=== PATIENT | female | born 2000 | race Caucasian/White ===

== ENCOUNTER 2023-01-08 11:24 | Emergency (ER) | payer OTHER, SELFPAY ==
[2023-01-08 11:30] VITALS: BP 120/79; PULSE 93; RESP 16; TEMP 36.7; O2SAT 100
--- NOTE | 2023-01-08 11:38 | ED.SKABFB ---
HPI - Skin/Abscess/Foreign Bdy General Chief complaint: Skin/Abscess/Foreign Body Stated complaint: Rash Time Seen by Provider: 01/08/23 11:33 Source: patient and RN notes reviewed Mode of arrival: ambulatory Limitations: no limitations History of Present Illness HPI narrative: Patient presents today complaining of possible poison guerrero to the dorsum of her right hand and anterior neck that she noted x4 days. States the rash has been extending around her neck since onset and the rash in her fingers has started to blister. She has been using hydrocortisone and Benadryl without much relief. 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 Related Data Home Medications Medication Instructions Recorded Confirmed sertraline 50 mg tablet 50 mg PO DAILY 01/25/22 01/08/23 Allergies Allergy/AdvReac Type Severity Reaction Status Date / Time hepatitis A virus vaccine AdvReac Intermediate Nausea And Verified 01/08/23 11:29 Vomiting moxifloxacin AdvReac Mild Hives Verified 01/08/23 11:34 Review of Systems Review of Systems: CONSTITUTIONAL: Denies body aches, fever, chills, or sweats. EYES: Denies visual changes, redness, or discharge. ENT: Denies rhinorrhea, congestion, sore throat, or otalgia. CARDIOVASCULAR: Denies chest pain, palpitations, or edema. RESPIRATORY: Denies cough or dyspnea. GASTROINTESTINAL: Denies abdominal pain, nausea, vomiting, or diarrhea. GENITOURINARY: Denies dysuria or hematuria. SKIN: + pruritic rash. MUSCULOSKELETAL: Denies back pain, joint pain, or myalgia. NEUROLOGIC: Denies headache, numbness, tingling, or weakness. PSYCH: Denies depression or anxiety. [facility] Family History Family History Father No problems noted. Mother Vitamin D deficiency Sibling Retinoblastoma of left eye Social History Social History Smoking status: Never smoker Alcohol intake: never Substance use type: does not use Lack of Transportation: No Lack of Food: Never True Current Housing: I Have Housing Concerned About Future Housing: No Difficulty Paying Gas/Electric Bills: No Difficulty Paying for Meds: No Currently Unemployed: No Education: Associate Degree Difficulty w/ Childcare or Family Care: No Comments At time of signature, I have reviewed and agree with nursing past medical, surgical, social and family history unless otherwise noted. Please see nursing chart for further information. There is no relevant family history pertinent to the presenting complaint Exam Narrative: GENERAL: Well-appearing, well-nourished, and in no acute distress. HEAD: Normocephalic, atraumatic. EYES: EOMI. No redness or drainage. Conjunctivae normal. ENT: Mucous membranes pink and moist. NECK: Normal AROM. CHEST: No respiratory distress. EXTREMITIES: Normal range of motion. No edema. SKIN: Warm, dry. Capillary refill normal. Normal skin turgor. [place] vesicular rash to the dorsum of the right hand at the base of the 3rd and 4th fingers. Same vesicular rash to the anterior neck. No signs of bacterial infection. NEURO: No focal deficits. Alert and oriented x3. Gait steady. PSYCH: Normal affect. No signs of depression or anxiety. Course Course Level of Care: Express Care Visit Vital Signs Vital signs: Vital Signs Temperature 98.1 F 01/08/23 11:30 Pulse Rate 93 01/08/23 11:30 Respiratory Rate 16 01/08/23 11:30 Blood Pressure 120/79 01/08/23 11:30 Pulse Oximetry 100 01/08/23 11:30 Oxygen Delivery Room Air 01/08/23 11:30 Temperature 98.1 F 01/08/23 11:30 Pulse Rate 93 01/08/23 11:30 Respiratory Rate 16 01/08/23 11:30 Blood Pressure 120/79 01/08/23 11:30 Pulse Oximetry 100 01/08/23 11:30 Oxygen Delivery Room Air 01/08/23 11:30 Reviewed MDM - Skin/Abscess/Foreign Bdy MDM Narrative
== END 2023-01-08 11:43 | disposition home or self-care (01) ==
PROVIDERS: Emergency Provider Nurse Practitioner; PCP Family Medicine
DX: L25.5 Unspecified contact dermatitis due to plants, except food (principal)
CPT/HCPCS: 99213; G0463

== ENCOUNTER 2023-01-19 17:23 | Emergency (ER) | payer OTHER, SELFPAY ==
[2023-01-19 17:29] VITALS: BP 124/83; PULSE 68; RESP 16; TEMP 36.5; O2SAT 100
--- NOTE | 2023-01-19 17:30 | ED.GENADULT ---
HPI - General Adult General Chief complaint: Skin/Abscess/Foreign Body Time Seen by Provider: 01/19/23 17:31 Source: patient Mode of arrival: ambulatory Limitations: no limitations History of Present Illness HPI narrative: 22-year-old presents to [facility] with sequela of poison guerrero rash. Patient states she was here 12 days ago for her rash on her hands and neck and received a tapered prednisone dose which she finished today. She states the rash on her neck is better but the rash on her hands is getting worse and now has rash extending to her torso and back. Denies rash in her groin o or buttocks. Denies taking any topical steroids. Patient states no one else in the household has this rash. Patient denies rash being more itchy at night. patient states she is taking Benadryl at night to help with itchiness and sleep. Related Data Home Medications Medication Instructions Recorded Confirmed sertraline 50 mg tablet 50 mg PO DAILY 01/25/22 01/19/23 Allergies Allergy/AdvReac Type Severity Reaction Status Date / Time hepatitis A virus vaccine AdvReac Intermediate Nausea And Verified 01/19/23 17:27 Vomiting moxifloxacin AdvReac Mild Hives Verified 01/19/23 17:27 Review of Systems Review of Systems: CONSTITUTIONAL: Denies fever, chills, or sweats. EYES: Denies visual changes, redness, or discharge. ENT: Denies rhinorrhea, congestion, sore throat, or otalgia. CARDIOVASCULAR: Denies chest pain, palpitations, or edema. RESPIRATORY: Denies cough or dyspnea. GASTROINTESTINAL: Denies abdominal pain, nausea, vomiting, or diarrhea. GENITOURINARY: Denies dysuria or hematuria. SKIN: positive rash and itching of bilateral hands, torso, and back. MUSCULOSKELETAL: Denies back pain, joint pain, or myalgia. NEUROLOGIC: Denies headache, numbness, or weakness. PSYCHIATRIC: Denies anxiety or depression. [facility] Past Medical History Medical History Acute bronchospasm Anxiety Drug-related hair loss Other idiopathic scoliosis, thoracic region Family History Family History Father No problems noted. Mother Vitamin D deficiency Sibling Retinoblastoma of left eye Social History Social History Smoking status: Never smoker Alcohol intake: never Substance use type: does not use Lack of Transportation: No Lack of Food: Never True Current Housing: I Have Housing Concerned About Future Housing: No Difficulty Paying Gas/Electric Bills: No Difficulty Paying for Meds: No Currently Unemployed: No Education: Associate Degree Difficulty w/ Childcare or Family Care: No Comments At the time of my signature I agree with nursing past medical history, surgical, social, and family history. There is no relevant family history pertinent to the presenting complaint. Exam Narrative: GENERAL: Well-appearing, well-nourished, and in no acute distress. HEAD: Normocephalic, atraumatic. EYES: PERRLA and EOMI. ENT: Nares clear, no rhinorrhea or epistaxis. Mucous membranes moist. NECK: Supple. No lymphadenopathy. patient has discoloration of the neck where previous rash spots have healed. CHEST: Clear to auscultation. No respiratory distress. HEART: Regular rate and rhythm. No murmur heard. Normal peripheral pulses. ABDOMEN: Soft, nontender, nondistended, normal active bowel sounds. EXTREMITIES: Normal range of motion. No edema. SKIN: Warm, dry. generalized maculopapular rash present without pustules, open sores, or drainage to bilateral hands, abdomen and lower back, some occurring in clusters. bilateral hands have scabs and crusting of maculopapular rash. NEURO: No focal deficits. Alert and oriented x3. Course Course Level of Care: Express Care Visit Vital Signs Vital signs: Vital Signs Temperature 36.5 C 01/19/23 17:29 Pulse R
== END 2023-01-19 17:53 | disposition home or self-care (01) ==
PROVIDERS: Emergency Provider Nurse Practitioner Family; PCP Family Medicine
DX: L25.5 Unspecified contact dermatitis due to plants, except food (principal)
CPT/HCPCS: 99213; G0463